=== PATIENT | female | born 1975 | race Caucasian/White ===

== ENCOUNTER 2019-11-22 10:57 | Outpatient (CLI) | payer BC, SELFPAY ==
--- NOTE | 2019-11-22 11:14 | MM_ITS ---
WS: [id number] BILATERAL DIGITAL SCREENING MAMMOGRAPHY WITH CAD CLINICAL INFORMATION: SCREENING HISTORY: Screening mammogram. No current complaints. COMPARISON: TECHNIQUE: Bilateral CC and MLO views. FINDINGS: The breasts are composed of heterogeneous fibroglandular density tissue, which can limit the detectio n of small underlying mass lesions. A few tiny calcifications left breast. No suspicious mass, asymme try, calcifications, or architectural distortion. No evidence of malignancy. MM/[id number] IMPRESSION: BI-RADS: 2-Benign FOLLOW UP: 1 Year Follow-up Recommend return to annual screening mammography.
== END 2019-11-22 10:58 | disposition home or self-care (01) ==
LOC: RADSHAW 11:03
PROVIDERS: Family Provider Family Medicine; PCP Family Medicine; Visit Provider Family Medicine
DX: Z12.31 Encounter for screening mammogram for malignant neoplasm of breast (principal)
CPT/HCPCS: 77067

== ENCOUNTER 2020-04-09 10:08 | Outpatient (RCR) | payer BC, SELFPAY | END 2020-05-02 23:59 | disposition home or self-care (01) | LOC: SOT 10:08 | PROVIDERS: PCP Family Medicine; Referring Provider Orthopaedic Surgery Hand Surgery; Visit Provider Orthopaedic Surgery Hand Surgery | DX: G56.31 Lesion of radial nerve, right upper limb (principal); M65.4 Radial styloid tenosynovitis [de Quervain]; G56.01 Carpal tunnel syndrome, right upper limb | CPT/HCPCS: 97035; 97110; 97140; 97166; L3809 ==

== ENCOUNTER 2020-05-03 06:00 | Outpatient (RCR) | payer BC, SELFPAY | END 2020-06-02 23:59 | disposition home or self-care (01) | LOC: SOT 06:00 | PROVIDERS: PCP Family Medicine; Referring Provider Orthopaedic Surgery Hand Surgery; Visit Provider Orthopaedic Surgery Hand Surgery | DX: G56.31 Lesion of radial nerve, right upper limb (principal); M65.4 Radial styloid tenosynovitis [de Quervain]; G56.01 Carpal tunnel syndrome, right upper limb | CPT/HCPCS: 97035; 97110; 97140 ==

== ENCOUNTER 2021-05-12 09:46 | Outpatient (CLI) | payer BC, SELFPAY ==
[2021-05-12 10:08] VITALS: BP 93/68; PULSE 88; RESP 14; TEMP 36.8; O2SAT 97
[2021-05-12 11:02] VITALS: BP 100/63; PULSE 74; RESP 14; TEMP 36.8; O2SAT 97
[2021-05-12 12:04] VITALS: BP 106/69; PULSE 77; RESP 14; TEMP 36.5; O2SAT 97
== END 2021-05-12 15:40 | disposition home or self-care (01) ==
LOC: OPS 09:49
PROVIDERS: PCP Family Medicine; Visit Provider Registered Nurse
DX: U07.1 COVID-19 (principal); E05.90 Thyrotoxicosis, unspecified without thyrotoxic crisis or storm
CPT/HCPCS: 96365

== ENCOUNTER 2021-08-03 07:40 | Outpatient (CLI) | payer BC, SELFPAY ==
[2021-08-03 09:36] LABS: Basophils # 0.1 10^3/uL (0.0-0.1); Basophils % 0.9 %; Eosinophils # 0.1 10^3/uL (0.0-0.8); Eosinophils % 1.6 %; Hematocrit 39.3 % (37.0-47.0); Hemoglobin 12.9 g/dL (11.5-15.3); Lymphocytes # 1.4 10^3/uL (0.8-4.8); Lymphocytes % 24.5 %; Mean Corpuscular HGB Conc 32.8 g/dL (30.0-36.0); Mean Corpuscular Volume 88.3 fl (81-99); Mean Platelet Volume 13.7 fL (7.4-10.4); Monocytes # 0.4 10^3/uL (0.2-0.9); Monocytes % 7.6 %; Neutrophils # 3.67 10^3/uL (1.8-7.7); Nucleated Red Blood Cells % 0 %; Platelet Count 117 10^3/cmm (130-400); Red Blood Count 4.45 10^6/uL (4.1-5.3); Red Cell Distribution Width 12.6 % (12.1-15.1); White Blood Count 5.6 10^3/uL (4.0-10.0)
[2021-08-03 09:50] LABS: Lactate Dehydrogenase 168 U/L (135-214)
[2021-08-03 10:04] LABS: Vitamin B12 746 pg/mL (232-1245)
[2021-08-03 10:11] LABS: LAB Peripheral Smear Sent for Review
[2021-08-03 10:37] LABS: Slide Review Slide Review Perform
--- NOTE | 2021-08-03 18:10 | ONC CON_ITS ---
Dr. Paulson New Patient Note Patient: Marlen Alvarez Unit #: [id number]: [id number] Dicatated By: Gabriel Paulson M.D.Date of Visit: Aug 03, 2021 Onc MED New Patient/Consult Referring Physician: Dr. Ceci Obrien M.D. Chief Complaint: Thrombocytopenia. History of Present Illness: This is a 46-year-old woman with moderately severe thrombocytopenia. She has a known history of Graves' disease, initially diagnosed about 10 years ago. She has been on treatment with methimazole. Her recent history also includes COVID-19 virus infection in May of this year, with her major symptoms being fever, fatigue, and joint pain. She did receive a casirivimab infusion, which made her sick for 4 days with nonstop vomiting. She then recovered uneventfully. On 07/23/2020 when she was seen by Dr. Ceci Obrien with complaints of extreme fatigue and diarrhea. Her CBC showed borderline low hemoglobin at 12.0 g with white blood cell count 6500 and platelet count 29,000. The differential showed 64% neutrophils, 27% lymphocytes, and 6% monocytes. Comprehensive metabolic profile was unremarkable. Her TSH was slightly low at 0.228 ???IU/mL with normal free T3 and free T4 levels. She says she has had extreme tiredness for the past 2 weeks. She is still able to work at home, but she has [place] no energy in the evening after dinner. Her ECOG score is 1. She has good appetite. She has not had any more fever. She has had some hot flashes/sweating, but inconsistently. She still has diarrhea, which comes and goes. Her stools tend to be loose, but not liquid. She has had some sores on the roof of her mouth. She has no shortness of breath or cough. She does not complain of chest pain, she does have palpitations associated with the Graves' disease. She has no other GI or complaints. She had no menstrual period in May or June following the COVID-19 infection, but she did have a menstrual period again in July. She has occasional mild sciatic joint pain with the Graves' disease. Her joint pain is otherwise completely resolved. She does not complain of headache. She does have some orthostatic lightheadedness. She has no numbness/paresthesia or other focal neurologic symptoms. She has always had easy bruising, and that has not gotten any worse. She has had no other bleeding manifestations. Interestingly, she says that she had one of those commercial DNA screens about 3 years ago and it apparently showed a possible hereditary platelet disorder. However, she no longer has access to that report. Past Medical History: Her medical history includes Graves disease, vitamin D deficiency, and COVID-19 virus infection in 2020. Past Surgical History: Her surgical/procedural history includes uterine ablation, right hand tendon release in 2020, and tubal ligation in 1998. Medications: Probiotic Capsule Oral daily, 50Zinc (50 mg) Tablet Oral daily, Cholecalciferol 250 mg (of 250 mcg ) Capsule Oral daily, K2 Plus D3 100 mcg (of 100-1000 mcg-Units) Tablet Oral daily, magnesium complex 1,000 mg Tablet daily, methIMAzole 7.5 mg Tablet Oral daily, Selenium 200 mg (of 200 mcg) Tablet Oral daily Allergies: dilTIAZem HCl, HYDROcodone-Acetaminophen, Propranolol HCl, and Sulfa Antibiotics. Social History: Ms. Alvarez is . 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 She is a non-smoker. She does not drink alcohol. Family History: Both parents are still living, father at age 76 and mother at age 68. He has coronary artery disease and a history of stroke. She has atrial fibrillation. Review Of Symptoms: Constitutional - She reports having extreme tiredness. She is still able to do some work. Her appetite is good. She has not had fever. She does have hot flashes/sweating, though inconsistently. ECOG score is 1, Eyes - She has had some visual changes with the Graves' disease, but it comes and goes, ENMT - No hearing loss or tinnitus. No sinus congestion/drainage. Recently she has had sores on the roof of her mouth. She has not had sore throat or difficulty swallowing, Endocrine - She has Graves' disease with associated goiter. She sees Dr. Russell for it, Hematologic/Lymphatic - She has easy bruising, but no worse than usual. She has had no other bleeding manifestations, Respiratory - No shortness of breath. No cough. No pleuritic pain or hemoptysis, Cardiovascular - No angina pain. She has palpitations, Gastrointestinal - No nausea or vomiting. No heartburn or acid reflux. She has been having intermittent diarrhea for the past 2 weeks. Stools are loose, but not liquid. She has not been aware of any blood in the stool or black stools, Genitourinary (F) - No dysuria or hematuria. No urinary frequency. No urgency or incontinence. She is premenopausal. Her menstrual periods have been regular other than she had no periods in May or June following the COVID-19 virus infection, Musculoskeletal - She had significant joint pain with the COVID-19 virus infection, but that resolved. She otherwise has just occasional mild SI joint pain associated with the Graves' disease, Integumentary - No skin rash or other skin changes, Neurologic - No headache or dizziness. She does have some orthostatic lightheadedness. No numbness or tingling. No other focal neurologic symptoms, Psychiatric - She sometimes has anxiety with the Graves' disease. No depression. No insomnia. Vital Signs: Performed on Aug 03, 2021 08:07: 8, 0, 30.26 (HIGH), 1.99 sq.m, 67 in, 98 %, 80 /min, 18 /min, 112/72 mm(hg), 98.3 F (LOW), and 193.2 lbs (HIGH). Physical Examination: Constitutional - She appears to be in good general health, Eyes - Sclerae nonicteric. Conjunctivae clear, ENMT - No lesions noted in the oral cavity, Neck - She has an obvious goiter, Hematologic/Lymphatic - No cervical, clavicular, or axillary adenopathy, Respiratory - Lungs are clear with good air movement bilaterally, Cardiovascular - Heart rhythm is regular. There is no murmur, gallop, or rub noted, Abdomen - Soft and non-tender. Liver and spleen are not enlarged. There is no abdominal mass or ascites noted and there is no inguinal adenopathy, Back/Spine - No spine or CVA tenderness noted, Extremities - No edema. There are no petechiae or ecchymosis noted, Integumentary - No rashes. No suspicious skin lesions noted, Neurologic - No focal neurologic deficits noted. Problem List: 1. Moderately severe thrombocytopenia. 2. She has had recent onset of severe fatigue and diarrhea. A specific cause has not been determined. 3. Graves' disease, currently on treatment with methimazole. 4. Vitamin D deficiency. Problems Addressed with this Encounter and Plan: 1. Patient with moderately severe thrombocytopenia. Etiology is uncertain. Platelet clumping would need to be excluded. Other likely possibilities would be post infectious thrombocytopenia, autoimmune thrombocytopenia, or an hereditary disorder. It also could be due to methimazole, but that seems unlikely given the duration of her treatment. She does not appear to have any associated bleeding tendency. At this point she will have additional laboratory studies to include a CBC, sed rate, LDH level, and B12 level, and I will review the blood smear. She will have further evaluation as indicated. 2. She has had recent onset of severe fatigue and diarrhea. A specific cause has not been determined, but I also will include serum iron studies with her other labs. If the diarrhea persists, she can proceed with stool studies as outlined by Dr. Obrien. It may be advisable to repeat Covid testing as well. Signed By: Gabriel Paulson M.D. <<Signature on File>>
[2021-08-04 13:36] LABS: Erythrocyte Sedimentation Rate 2 mm/hr (0-15)
== END 2021-08-03 07:41 | disposition home or self-care (01) ==
LOC: ONCMED 07:42
PROVIDERS: PCP Family Medicine; Visit Provider Internal Medicine Medical Oncology
DX: D69.6 Thrombocytopenia, unspecified (principal); E05.00 Thyrotoxicosis with diffuse goiter without thyrotoxic crisis or storm; E55.9 Vitamin D deficiency, unspecified; R53.83 Other fatigue; R19.7 Diarrhea, unspecified; Z86.16 Personal history of COVID-19; Z79.899 Other long term (current) drug therapy
CPT/HCPCS: 36415; 82607; 83615; 85025; 85651; 99205

== ENCOUNTER 2021-08-07 10:59 | Outpatient (CLI) | payer BC, SELFPAY ==
--- NOTE | 2021-08-07 11:02 | MM_ITS ---
WS: [id number] SCREENING DIGITAL MAMMOGRAM WITH CAD HISTORY: SCREENING COMPARISON: 11/22/2019, 01/26/2018 and 01/05/2017 Bilateral CC and MLO views submitted. Computer aided detection analyzed. Breast composition: The breasts are heterogeneously dense, which may obscure small masses. Spiculated asymmetry measuring 6 mm seen best on the RIGHT CC projection just medial to the nipple line. Asymme try is in the middle depth. May be along the inferior breast on the lateral projection. MM/[place] [id number] IMPRESSION: BI-RADS: 0-Incomplete: Need additional imaging evaluation FOLLOW UP: Need Additional Imaging RIGHT breast: Spot compression views (CC and MLO). True ML. Ultrasound to follo w if abnormality persists.
== END 2021-08-07 11:00 | disposition home or self-care (01) ==
LOC: RADSHAW 11:00
PROVIDERS: PCP Family Medicine; Visit Provider Family Medicine
DX: Z12.31 Encounter for screening mammogram for malignant neoplasm of breast (principal)
CPT/HCPCS: 77067

== ENCOUNTER 2022-12-07 06:00 | Outpatient (RCR) | payer BC, MEDICAID, SELFPAY | END 2022-12-15 23:59 | disposition home or self-care (01) | LOC: SPT 06:00 | PROVIDERS: PCP Family Medicine; Visit Provider Nurse Practitioner Family | DX: M25.561 Pain in right knee (principal); G89.29 Other chronic pain | CPT/HCPCS: 97110; 97161 ==

== ENCOUNTER 2024-09-30 12:55 | Emergency (ER) | payer BC, MEDICAID, SELFPAY ==
[2024-09-30 12:58] VITALS: BP 136/80; PULSE 71; RESP 18; TEMP 36.6; O2SAT 98; BMI 34.2
--- NOTE | 2024-09-30 13:57 | USR_ITS ---
PROCEDURE INFORMATION: Exam: US Duplex Right Lower Extremity Veins, Limited Exam date and time: 09/30/2024 2:48 PM Age: 49 years old Clinical indication: Pain; Leg, upper; Right; Additional info: Thigh/knee pain; Sent for dvt R/O TECHNIQUE: Imaging protocol: Real-time duplex ultrasound of the right extremity with 2-D jasmine scale, color Doppler flow and spectral waveform analysis including responses to compression and other maneuvers (when performed) with image documentation. Limited exam was focused on the right lower extremity veins. COMPARISON: CR (LOW EXM, ) 09/30/2024 2:04 PM FINDINGS: Right deep veins: The common femoral, femoral, proximal profunda femoral and popliteal veins are patent without evidence of thrombus and demonstrate normal waveforms. Visualized deep calf veins are patent. Superficial veins: Saphenofemoral junction is patent without thrombus. No evidence of thrombophlebitis. Soft tissues: No evidence of fluid collection. US/[place] [id number] IMPRESSION: 1. No sonographic evidence of deep venous thrombosis in the right lower extremity.
--- NOTE | 2024-09-30 13:57 | XRR_ITS ---
PROCEDURE INFORMATION: Exam: XR Right Femur Exam date and time: 09/30/2024 2:04 PM Age: 49 years old Clinical indication: Right; Patient HX: RT posterior thigh pain; No known injury TECHNIQUE: Imaging protocol: Radiologic exam of the right femur. Views: 2 views. COMPARISON: CT abdomen pelvis w con* [id number] 01/14/2018 7:53 PM FINDINGS: Bones/joints: The femur is grossly intact. No evidence of fracture or aggressive osseous lesion. Mild tricompartmental osteoarthritis with small marginal osteophytes. Soft tissues: Grossly unremarkable. XR/XR femur RT min 2V* [id number] IMPRESSION: 1. No evidence of fracture or malalignment. If there is concern for muscle or tendon pathology, follow-up outpatient MRI may be helpful.
--- NOTE | 2024-09-30 13:58 | ED_ITS ---
HPI - Extremity Problem General: Chief complaint: Extremity Problem,Nontraumatic Stated complaint: pain back R. thigh Time Seen by Provider: 09/30/24 13:05 History of Present Illness: Patient reports atraumatic right posterior thigh pain for the last couple days. Yesterday she noticed what appeared to be a minor bruise in the posterior thigh. She reports she does bruise easily but is not on any anticoagulation. She reports no weakness. She did have some tingling type numbness going from her right knee to her right ankle for short period of time yesterday that never returned. She does have a history of Graves' disease. She has been very active and under some situational stress trying to navigate through the holidays according to her . She does not endorse any long plane rides or car trips. She is not having any shortness of breath lightheadedness or syncope. She does have a history of Graves' disease. Patient is here to make sure that she does not have a DVT in the right leg and also to see if she can get an x-ray of that area to make sure there is no bony lesions. Related Data Home Medications Medication Instructions Recorded Confirmed ascorbate calcium (vitamin C) 500 500 mg PO BID 06/18/21 09/30/24 mg tablet cholecalciferol (vitamin D3) 10 10 mcg PO DAILY 06/18/21 09/30/24 mcg (400 unit) capsule methimazole 5 mg tablet 20 mg PO DAILY 06/18/21 09/30/24 fluticasone propionate 50 2 spray intranasal DAILY 09/30/24 09/30/24 mcg/actuation nasal spray,suspension hydrocortisone acetate 25 mg 25 mg ID BID 09/30/24 09/30/24 rectal suppository lorazepam 0.5 mg tablet 0.5 mg PO DAILY 09/30/24 09/30/24 magnesium 200 mg tablet 200 mg PO DAILY 09/30/24 09/30/24 multivitamin 1 tab PO DAILY 09/30/24 09/30/24 Allergies Allergy/AdvReac Type Severity Reaction Status Date / Time diltiazem Allergy swelling Verified 09/30/24 13:02 hydrocodone Allergy itching Verified 09/30/24 13:02 Sulfa (Sulfonamide Allergy rash Verified 09/30/24 13:02 Antibiotics) Review of Systems General: Reports: 10 or more systems reviewed and unremarkable except in HPI and below PFSH ED PFS: Medical History Graves disease Social History Smoking and tobacco/nicotine status: never used tobacco/nicotine Physical Exam Const: COMMON NORMALS: no limitations, alert and well nourished EXAM LIMITATIONS: no altered mental status HENMT: COMMON NORMALS: normocephalic, atraumatic and external ears normal HEAD & SCALP: normocephalic and atraumatic EXTERNAL EAR: Yes external ears normal MOUTH: no muffled voice Eye: COMMON NORMALS: conjunctivae normal and no scleral icterus CONJUNCTIVA: Yes conjunctivae normal Neck/C-Spine: GENERAL: Yes normal visual inspection and Yes trachea midline Resp: COMMON NORMALS: normal respiratory effort, No use of accessory muscles and clear to auscultation bilaterally AUSCULTATION: clear to auscultation bilaterally Cardio: COMMON NORMALS: regular rate and regular rhythm RATE: regular rate RHYTHM: regular rhythm Extremity: COMMON NORMALS: normal to inspection OTHER: Both lower extremities are symmetric from the thigh down to the knees down to t he calves and feet. DP pulse 2+ bilaterally. Patient's sensory exam to light touch and strength to push and pull are normal bilaterally. When I have the patient flex her right hamstring against resistance she has mild pain. When I palpate her right hamstring she has mild tenderness. The compartments in her lower and upper legs are soft. There are no objective signs of DVT. No rashes or wounds. I do not actually see any bruising in her posterior thigh. Neuro: COMMON NORMALS: moves all extremities, no focal motor deficits and no sensory deficits noted SENSORIUM/ORIENTATION: Yes alert SPEECH: speech normal Psych: COMMON NORMALS: mental status grossly normal, Normal thought process present, cooperative, normal affect and speech normal SPEECH: Yes normal speech THOUGHT PROCESS: Normal thought process present Skin: COMMON NORMALS: no rashes or lesions noted, turgor normal and no jaundice GENERAL SKIN EXAM: no rashes or lesions noted and turgor normal Course Vital Signs: Vital signs: Vital Signs Temperature 97.9 F 09/30/24 12:58 Pulse Rate 67 09/30/24 15:00 Respiratory Rate 18 09/30/24 12:58 Blood Pressure 122/80 09/30/24 15:00 Pulse Oximetry 100 09/30/24 15:00 Oxygen Delivery Me thod Room Air 09/30/24 15:00 MDM - Extremity (Nontraumatic) Medical Decision Making Patient reported some faint bruising in her right posterior thigh and discomfort there. She has chronic right medial knee issues and has been on her feet a lot with Rubin. She also noticed a transient paresthesia from her right knee to her right ankle yesterday that never recurred. The physical examination is actually objectively unremarkable other than right hamstring pain with strength exam against resistance and with palpation. Unlikely to be DVT. No signs of clinically significant peripheral arterial disease. No rashes or wounds. No foreign bodies or masses appreciated. Unlikely to be sarcoma, primary bony lesion, pathologic fracture. Axial loading and distraction of the lower extremities does not cause any pain. No acute pathology of the knee. Overall, symptoms are suggestive of a right hamstring strain. Patient would like to proceed with x-ray of the right femur area as well as ultrasound of the right lower extremity to rule out any bony lesions or DVT. If this will help reassure the patient, I think it is reasonable. Of note I did not see any cellulitis or signs of superficial thrombophlebitis on examination. She does have some superficial spider angiomata type appearance versus early small varicose veins. Update 1545 X-rays of the right femur did not show any bony lesions. Venous duplex of the right lower extremity did not show any DVT. Patient can be discharged with outpatient follow-up and return precautions. Lab Data Radiology Impressions Femur X-Ray 09/30/24 13:57 IMPRESSION: 1. No evidence of fracture or malalignment. If there is concern for muscle or tendon pathology, follow-up outpatient MRI may be helpful. Venous Duplex 09/30/24 13:57 IMPRESSION: 1. No sonographic evidence of deep venous thrombosis in the right lower extremity. All radiology interpretation(s) finalized by discharge Discharge Plan Discharge Patient Disposition: Home Clinical Impression: Acute pain of right thigh Condition: Stable Prescriptions: No Action methimazole 5 mg tablet 20 mg PO DAILY cholecalciferol (vitamin D3) 10 mcg (400 unit) capsule 10 mcg PO DAILY ascorbate calcium (vitamin C) 500 mg tablet 500 mg PO BID hydrocortisone acetate 25 mg suppository 25 mg ID BID lorazepam 0.5 mg tablet 0.5 mg PO DAILY fluticasone propionate 50 mcg/actuation spray,suspension 2 spray INTRANASAL DAILY multivitamin Tablet 1 tab PO DAILY magnesium 200 mg Tablet 200 mg PO DAILY Discharge Orders: Discharge ED (Routine); Ordered 09/30/24 Ordered By: Cayden Purcell Referrals: Yumiko Delvalle DO [Primary Care Provider] - 1 week Patient Instructions: Pain Management Activity Restrictions/Additional Instructions: There were no signs of bony lesions or any blood clot in the right lower extremity. The most likely cause is soft tissue injury to the muscle, fascia and other connective tissues in the right thigh. If you continue to have pain or you notice swelling, redness, warmth, fever, increased pressure in the compartments or other symptoms then you need to have repeat evaluation. Coding Level of Care Code ED Color Laboratory Technician for Rick Salvador
[2024-09-30 15:00] VITALS: BP 122/80; PULSE 67; O2SAT 100
[2024-09-30 15:56] VITALS: BP 116/76; PULSE 61; O2SAT 99
== END 2024-09-30 15:57 | disposition home or self-care (01) ==
PROVIDERS: Emergency Provider Emergency Medicine; PCP Family Medicine
DX: M79.651 Pain in right thigh (principal)
CPT/HCPCS: 73552; 93971; 99284